=== PATIENT | male | born 1985 | race African-American/Black ===

== ENCOUNTER 2024-02-15 10:23 | Inpatient (IN) | payer OTHER ==
[2024-02-15 10:48] VITALS: BMI 31.6
[2024-02-15] MEDS ORDERED: IBUPROFEN 600 MG TABLET (FP) PO PRN (11:22)
[2024-02-15] MEDS ORDERED: IBUPROFEN 400 MG TABLET (FP) PO PRN (11:22)
[2024-02-15] MEDS ORDERED: NALOXONE HCL 0.4 MG/ML VIAL IVPUSH PRN (11:22)
[2024-02-15] MEDS ORDERED: POLYETHYLENE GLYCOL (HEALTHYLAX) 3350 17 GM PACKET PO PRN (11:22)
[2024-02-15] MEDS ORDERED: NICOTINE POLACRILEX 2 MG LOZENGE BC PRN (11:22)
[2024-02-15] MEDS ORDERED: MAGNESIUM HYDROX 2400MG/30ML ORAL SUSPENSION 30 ML CUP PO PRN (11:22)
[2024-02-15] MEDS ORDERED: NALOXONE (NARCAN) HCL 4 MG/0.1 ML SPRAY NS PRN (11:22)
[2024-02-15] MEDS ORDERED: BENZONATATE 200 MG CAPSULE PO PRN (11:22)
[2024-02-15] MEDS ORDERED: guaiFENesin 600 MG TABLET.ER (FP) PO PRN (11:22)
[2024-02-15] MEDS ORDERED: BENZOCAINE/MENTHOL (CHLORASEPTIC ) LOZENGE MM PRN (11:22)
[2024-02-15] MEDS ORDERED: chlordiazePOXIDE HCL 25 MG CAPSULE PO PRN (11:22)
[2024-02-15] MEDS ORDERED: LOPERAMIDE HCL 2 MG CAPSULE PO PRN (11:22)
[2024-02-15] MEDS ORDERED: MAG HYDROX/AL HYDROX/SIMETH 30 ML UNIT-DOSE CUP PO PRN (11:22)
[2024-02-15] MEDS ORDERED: amLODIPine BESYLATE 5 MG TABLET (FP) ONE (13:15)
[2024-02-15] MEDS: amLODIPine BESYLATE 10 MG TABLET (FP) PO SCH (13:17)
[2024-02-15] MEDS ORDERED: ALBUTEROL SO4 HFA INHALER IH PRN (13:27)
[2024-02-15] MEDS ORDERED: ACETAMINOPHEN 325 MG TABLET (FP) PO PRN (13:30)
[2024-02-15] MEDS: hydrOXYzine PAMOATE 25 MG CAPSULE (FP) PO PRN (14:44)
[2024-02-15] MEDS: NALTREXONE HCL 50 MG TABLET PO ONE (14:44)
[2024-02-15] MEDS: METHOCARBAMOL 500 MG TABLET PO PRN (14:44)
[2024-02-15] MEDS: TUBERCULIN PPD 5 TU/0.1ML SYRINGE (IN PATIENT USE ONLY) ID ONE (15:10)
[2024-02-15] MEDS: chlordiazePOXIDE HCL 25 MG CAPSULE PO SCH (17:43)
[2024-02-15] MEDS: METOPROLOL TARTRATE 25 MG TABLET (FP) PO ONE ×2 (18:38→22:26)
[2024-02-15] MEDS: MELATONIN 5 MG TABLETS PO SCH (22:26)
[2024-02-15] MEDS: THIAMINE 100 MG TABLET PO SCH (22:26)
[2024-02-16 09:51] VITALS: RESP 20
[2024-02-16] MEDS: PRENATAL VITAMINS W/ FOLIC ACID TABLET (FP) PO SCH (10:29)
[2024-02-16] MEDS: NALTREXONE HCL 50 MG TABLET PO SCH (10:30)
[2024-02-16] MEDS: NALOXONE (NYS OPIOID OVERDOSE PROGRAM) 4 MG/0.1 ML SPRAY NS SCH (13:27)
[2024-02-16 13:35] VITALS: BP 163/100; PULSE 78; TEMP 97.8
[2024-02-16 14:56] LABS: HIV INTERPRETATION NEGATIVE (NEGATIVE)
[2024-02-17] MEDS ORDERED: chlordiazePOXIDE HCL 25 MG CAPSULE PO SCH (05:00)
[2024-02-18] MEDS ORDERED: chlordiazePOXIDE HCL 10 MG CAPSULE PO PRN
[2024-02-18] MEDS ORDERED: chlordiazePOXIDE HCL 10 MG CAPSULE PO SCH (05:00)
[2024-02-19] MEDS ORDERED: chlordiazePOXIDE HCL 10 MG CAPSULE PO SCH (05:00)
[2024-02-20] MEDS ORDERED: chlordiazePOXIDE HCL 10 MG CAPSULE PO ONE (05:00)
== END 2024-02-16 13:35 | disposition left against medical advice (07) | DRG 770 ==
LOC: YASAS 10:23 → Y3N 13:17
PROVIDERS: ADMIT Allergy & Immunology; ATTEND Surgery
PROC: HZ2ZZZZ Detoxification Services for Substance Abuse Treatment (ICD-10-PCS; principal; 2024-02-15)
DX: F10.230 Alcohol dependence with withdrawal, uncomplicated (principal); F14.20 Cocaine dependence, uncomplicated; F17.210 Nicotine dependence, cigarettes, uncomplicated; I10 Essential (primary) hypertension; J45.909 Unspecified asthma, uncomplicated
CPT/HCPCS: 36415; 86803; 87389; 93005; 93010